=== PATIENT | female | born 1960 | race Caucasian/White ===

== ENCOUNTER 2023-05-04 19:31 | Emergency (ER) | payer OTHER, SELFPAY ==
[2023-05-04 19:42] VITALS: BP 142/92; PULSE 86; RESP 16; TEMP 36.1; O2SAT 97
--- NOTE | 2023-05-04 19:51 | ED.NURSE ---
At end of triage, pt reported neck pain. CMS intact. C-Collar applied. CMS remained intact after application. at bedside with pt
--- NOTE | 2023-05-04 20:17 | ED_ITS ---
HPI - General Adult General Date Seen: 05/04/23 Chief complaint: Laceration/Wound Stated complaint: Head laceration Time Seen by Provider: 05/04/23 20:03 Source: patient Mode of arrival: ambulatory Limitations: no limitations History of Present Illness HPI narrative: Patient is a 63-year-old woman who was cleaning the bathroom, slipped on a wet floor and hit her head on the edge of the toilet. She has a laceration on her forehead. She denies a loss of consciousness, severe headache, vomiting, altered mentation seizure or other complaints. She does not take any anticoagulation. In triage she apparently noted that she had some neck pains with C-collar was applied, but she tells me that her neck really does not hurt anymore. She says she thinks it was little sore just from hitting her head but currently she has no neck pain. She is up-to-date on her tetanus. Related Data Home Medications Medication Instructions Recorded Confirmed No Known Home Medications 05/04/23 05/04/23 Allergies Allergy/AdvReac Type Severity Reaction Status Date / Time No Known Drug Allergies Allergy Verified 05/04/23 19:42 Review of Systems Status of ROS: Reports: 6 or more systems reviewed and unremarkable except as noted in History and below Exam Narrative: Exam Narrative: Vital signs reviewed In general, alert, well-appearing woman. Head: Normocephalic. She has a 1/2 cm laceration oriented just off of horizontal on the right side of her forehead. Bleeding is controlled. There is a of bit of surrounding hematoma. Eyes: Sclera clear. Extraocular movements are full. ENT: No other facial trauma. Dentition intact. Neck: Nontender to palpation. Neurologic: She is alert, conversant, gait stable. Const: Vital Signs, click to edit/add: Vital Signs - 24 hr 05/04/23 19:42 Temperature 96.9 F L Pulse Rate [Left P ulse Oximeter] 86 Respiratory Rate 16 Blood Pressure [Ri ght Upper Arm] 142/92 H Pulse Oximetry 97 Oxygen Delivery Me thod Room Air Documenting provider has reviewed patient's vital signs: yes Course Course Hospital Course: Procedure note: Wound was cleaned, no evidence of foreign body, bleeding remains controlled and I did feel that this was reasonably closed with Dermabond. Patient was eager to avoid stitches. Wound was closed with Dermabond, edges approximated well and there were no immediate complications. Patient declines imaging of her neck, she says she does not have any neck pain at this time and does not feel she needs further evaluation of that. She denies any symptoms suggestive of more severe head injury, is not anticoagulated, at this time I do not think needs intracranial imaging. Wound care discussed, Dermabond care discussed. She should be seen for acute changes such as severe headache, vomiting, altered mentation etcetera or signs of infection. Vital Signs Vital signs: Initial Vital Signs Temperature 96.9 F L 05/04/23 19:42 Temperature Source Temporal Artery Scan 05/04/23 19:42 Pulse Rate 86 05/04/23 19:42 Pulse Rhythm Regular 05/04/23 19:42 Respiratory Rate 16 05/04/23 19:42 Blood Pressure 142/92 H 05/04/23 19:42 Blood Pressure Mean 108 H 05/04/23 19:42 Blood Pressure Position Sitting 05/04/23 19:42 Pulse Oximetry 97 05/04/23 19:42 Oxygen Delivery Method Room Air 05/04/23 19:42 Vital Signs Temperature 96.9 F L 05/04/23 19:42 Pulse Rate 86 05/04/23 19:42 Respiratory Rate 16 05/04/23 19:42 Blood Pressure 142/92 H 05/04/23 19:42 Pulse Oximetry 97 05/04/23 19:42 Oxygen Delivery Method Room Air 05/04/23 19:42 Temperature 96.9 F L 05/04/23 19:42 Pulse Rate 86 05/04/23 19:42 Respiratory Rate 16 05/04/23 19:42 Blood Pressure 142/92 H 05/04/23 19:42 Pulse Oximetry 97 05/04/23 19:42 Oxygen Delivery Method Room Air 05/04/23 19:42 Discharge Plan Discharge Clinical Impression: Forehead laceration Patient Disposition: Home, Self-Care Instructions: Skin Adhesive Care (ED), Head Laceration (ED) Additional Instructions: Routine wound care. Return for changes such as severe headache, vomiting, confusion, or evidence of infection. Prescriptions: No Action No Known Home Medications Follow Up/Referrals: Provider,Not a Local [Primary Care Provider] - Stand Alone Forms: [email or web address] Info Instructions
== END 2023-05-04 20:44 | disposition home or self-care (01) ==
LOC: ED 20:26
PROVIDERS: Emergency Provider Emergency Medicine; PCP Physician Assistant Medical
DX: S01.81XA Laceration without foreign body of other part of head, initial encounter (principal); W18.09XA Striking against other object with subsequent fall, initial encounter; Y93.E5 Activity, floor mopping and cleaning; Y92.012 Bathroom of single-family (private) house as the place of occurrence of the external cause
CPT/HCPCS: 12001; 99282; 99283; 99284

== ENCOUNTER 2024-12-20 08:29 | Day surgery (SDC) | payer MEDICARE, BC, SELFPAY ==
[2024-12-20] VITALS (13 sets, daily range): BP systolic 101–122; BP diastolic 64–90; PULSE 65–79; RESP 14–20; TEMP 36.3–36.8; O2SAT 92–98; BMI 26.2
[2024-12-20] MEDS: CELECOXIB 200 MG CAPSULE PO (08:23)
[2024-12-20] MEDS: ACETAMINOPHEN 500 MG TABLET 1000 MG PO (08:23)
[2024-12-20] MEDS: EPINEPHrine 1 MG in SODIUM CHLORIDE IRRIG SOLUTION 3,000 ML 7000 MG IRRIGATION ×2 (09:10→10:55)
[2024-12-20] MEDS: LACTATED RINGERS 1000 ML 1,000 ML 100 ML IV ×2 (09:30→12:13)
[2024-12-20] MEDS: SODIUM CHLORIDE 0.9 % (FLUSH) 10 ML SYRINGE IVF (09:30)
[2024-12-20] MEDS: MIDAZOLAM HCL 1 MG/ML inj IVP (10:10)
[2024-12-20] MEDS: fentaNYL 100 MCG/2 ML inj IVP (10:10)
--- NOTE | 2024-12-20 10:16 | SUR.PREOP ---
TIME?OUT:?right shoulder, 1005 PT/RN/MDA?VERIFICATION?OF?SURGICAL?SITE,?PROCEDURE,?AND?CONSENT OBTAINED?PRIOR?TO?INVASIVE?PROCEDURE.
--- NOTE | 2024-12-20 10:37 | P.NB_ITS ---
Nerve Block Nerve Block Time Seen by Provider: 10:11 Date Seen: 12/20/24 Type of block requested by surgeon for post-operative analgesia: supraclavicular Side: right Time out performed: Yes Verification of patient name: Yes Verification of date of : Yes Site marking: site marked Name of person performing procedure: Abraham Continuous monitoring Was continuous monitoring of O2 sat, B/P, environmental monitoring technician, recorded every 15 minutes?: Yes Procedure Checklist: sterile prep, needles and gloves Ultrasound guided. Images saved: Yes Medications given in 5ml increments after negative aspiration: Ropivicaine %: 0.5 mL: 20 Needle gauge: 22 Precedex (mcg): 25 Patient tolerated procedure well: Yes Block Charges Block Charge (with Pro Fee): Brachial Plexus Use of Ultrasound Machine for Block: Yes- US Guidance/pain block
--- NOTE | 2024-12-20 10:38 | P.ANES_ITS ---
Anesthesia Charges Start Date/Time Anesthesia Start Date: 12/20/24 Anesthesia Start Time: 10:16 Stop Date/Time Anesthesia Stop Date: 12/20/24 Anesthesia Stop Time: 12:51 Coding CPT Codes CPT Codes: ANESTH SURGERY OF SHOULDER - 57197 ([id number]) P2 - PATIENT W/MILD SYST DISEASE, QK - POLICE DISPATCHER 2-4 CNCRNT ANES PROC, QX - FIREARMS SPECIALIST SVC W/ MD MED DIRECTION
--- NOTE | 2024-12-20 10:38 | W.ANESCHARGE ---
Anesthesia Charges Start Date/Time Anesthesia Start Date: 12/20/24 Anesthesia Start Time: 10:16 Stop Date/Time Anesthesia Stop Date: 12/20/24 Anesthesia Stop Time: 12:51 Coding CPT Codes CPT Codes: ANESTH SURGERY OF SHOULDER - 47562 ([id number]) P2 - PATIENT W/MILD SYST DISEASE, QK - ENVIRONMENTAL HEALTH SANITARIAN 2-4 CNCRNT ANES PROC, QX - BUSINESS SYSTEMS ARCHITECT SVC W/ MD MED DIRECTION
[2024-12-20] MEDS: CEFAZOLIN 2 GM INJ IVP (10:46)
[2024-12-20] MEDS: EPINEPHrine 1 MG in SODIUM CHLORIDE IRRIG SOLUTION 3,000 ML 9003 MG IRRIGATION (10:50)
[2024-12-20] MEDS: BUPIVACAINE 0.25 %/EPI 1:200K 30 ml INJECTION (12:05)
--- NOTE | 2024-12-20 12:12 | P.ORPRC_ITS ---
Procedure Note Date of procedure: 12/20/24 Procedure: PREOPERATIVE DIAGNOSIS: Right shoulder rotator cuff tear, AC joint arthrosis, labral tearing, right hand middle finger stenosing tenosynovitis POSTOPERATIVE DIAGNOSIS: Right shoulder rotator cuff tear, AC joint arthrosis, labral tearing, right hand middle finger stenosing tenosynovitis NAME OF OPERATION: Right shoulder arthroscopic limited glenohumeral joint debridement, subacromial decompression, distal clavicle excision, mini open rotator cuff repair, right hand middle finger A1 esther release SURGEON: Lester Evans MD SHOT CORE DRILL OPERATOR: Taryn Steele PA-C ANESTHESIA: Supraclavicular block plus general endotracheal ESTIMATED BLOOD LOSS: 5 mL COMPLICATIONS: None SPECIMENS: None DRAINS: None PREOPERATIVE ANTIBIOTICS: Ancef 2 grams INDICATIONS: The patient is a 64-year-old with a history of right shoulder pain secondary to the above diagnoses, right hand middle finger catching secondary to trigger finger. Despite appropriate non operative management, they continue to have symptoms. Operative intervention was recommended. The risks, benefits and expected outcomes were discussed in detail. These included but were not limited to: Infection, bleeding, injury to blood vessel or nerve, venous thromboembolism. All questions were answered to their satisfaction. PROCEDURE: A supraclavicular block was placed by Anesthesia. General anesthesia was administered. The patient was placed in the high beach chair position. The right shoulder was prepped and draped in the usual sterile fashion. The glenohumeral joint was infiltrated with 20 mL of normal saline with epinephrine. The posterior portal was established, the arthroscope was introduced. The anterior portal was established, Diagnostic arthroscopy was performed with findings as follows: The biceps and biceps anchor are intact. The labrum shows age-appropriate circumferential degenerative tearing. Articular surfaces on the humeral head and glenoid are normal. There are no loose bodies. There is a full-thickness tear of the supraspinatus. There is longitudinal tearing of the upper border of the subscap. The arthroscope was placed in the subacromial space, the lateral portal was established. The Arthrex [place] was used to dissect the acromion free. The CA ligament was recessed off the anterior acromion, the AC joint was exposed. The acromioplasty was performed with the bur in the posterior portal. The bur was then placed in the lateral portal and the lateral and anterior aspect of the acromion were resected. The undersurface of the distal clavicle was resected through the lateral portal. Finally, the bur was placed in the anterior portal and the remainder of the distal clavicle was resected for a total of 10 mm. An accessory anterolateral portal was placed. The subacromial/subdeltoid bursa was aggressively debrided. There is a full-thickness tear of the supraspinatus. Arthroscopic instruments were removed. The accessory anterolateral portal was extended proximally and distally, subcutaneous dissection was taken with electrocautery to the deltoid. The deltoid was divided in line with its fibers. The static retractor was placed. The subacromial/subdeltoid bursa was debrided with the Smith scissors. The cuff tear was extended both anteriorly and posteriorly. We extended it anteriorly, across the biceps and into the upper subscap, exposing the upper border of the lesser tuberosity. Both the greater and lesser tuberosities were debrided to punctate bleeding bone using the arthroscopic bur and Lempert rongeur. Two Arthrex FiberTak anchors were placed just off the articular surface of the greater tuberosity. Both limbs of the FiberWire and fiber tape were passed using the scorpion. A fiber link was placed in the leading edge of the rotator cuff x2. A corkscrew anchor was placed in the upper lesser tuberosity. All 4 limbs of suture were passed through the subscap with the scorpion. We tied the 2 central FiberWire sutures over the supraspinatus. We then proceeded with a lateral row of SwiveLock anchors x 2 crossing the FiberTape and incorporating the FiberWire and fiber link into each lateral row anchor. The suture on the eyelet was passed through the leading edge of the rotator cuff x2. Finally, the sutures over the subscap were tied. This provides an anatomic, watertight repair of the rotator cuff. There is no tension on the repair with the shoulder at 0? abduction. Attention was then turned to the hand. The hand was sterilely prepped. The skin was infiltrated with 0.25% Marcaine with epinephrine. An incision was made in the distal palmar crease at the base of the middle finger. Subcutaneous dissection was taken with tenotomy scissors to the flexor tendons. The A1 esther was divided longitudinally with the 15 blade and tenotomy scissors. The flexor tendons have some tendinopathy associated with the tenosynovitis. The hand wound was closed with interrupted nylon sutures. The shoulder wound was irrigated with normal saline off the pump. The deltoid was repaired with an 0 Vicryl in an interrupted [id number] fashion. Subcutaneous tissues were closed with a 3-0 Vicryl. Skin was closed with a 3-0 Monocryl in a subcuticular fashion. A dry dressing and sling were applied. Sponge and needle counts were correct x2. The patient tolerated the procedure well. There were no apparent complications. They were carefully transferred to the hospital bed and taken to the postanesthesia care unit in satisfactory condition. PLAN: The patient will be discharged to home. No active range of motion of the shoulder will be allowed for 6 weeks postoperatively. Use of the hand as tolerates. They can work on active range of motion of the elbow, wrist and fingers. They will follow up in the office next week for a wound check and an AP and transscapular Y-view of the shoulder prior to being seen.
--- NOTE | 2024-12-20 12:52 | P.ANES_ITS ---
Anesthesia Charges Start Date/Time Anesthesia Start Date: 12/20/24 Anesthesia Start Time: 10:16 Stop Date/Time Anesthesia Stop Date: 12/20/24 Anesthesia Stop Time: 12:51 Coding CPT Codes CPT Codes: ANESTH SURGERY OF SHOULDER - 26585 ([id number]) P1 - NORMAL HEALTHY PATIENT, QK - PLASTIC TILE LAYER 2-4 CNCRNT ANES PROC, QX - COMPRESSOR REPAIRER SVKtaerina W/ MED DIRECTION
--- NOTE | 2024-12-20 12:52 | W.ANESCHARGE ---
Anesthesia Charges Start Date/Time Anesthesia Start Date: 12/20/24 Anesthesia Start Time: 10:16 Stop Date/Time Anesthesia Stop Date: 12/20/24 Anesthesia Stop Time: 12:51 Coding CPT Codes CPT Codes: ANESTH SURGERY OF SHOULDER - 08892 ([id number]) P1 - NORMAL HEALTHY PATIENT, QK - ACCOUNTS PAYABLE CLERK 2-4 CNCRNT ANES PROC, QX - RED MUD THICKENER OPERATOR SVKaterina W/ MED DIRECTION
== END 2024-12-20 14:40 | disposition home or self-care (01) ==
PROVIDERS: PCP Physician Assistant Medical; Visit Provider Orthopaedic Surgery
PROC: (CPT 23412; principal; 2024-12-20 10:45)
PROC: (CPT 26055; 2024-12-20 10:45)
DX: M75.101 Unspecified rotator cuff tear or rupture of right shoulder, not specified as traumatic (principal); M19.011 Primary osteoarthritis, right shoulder; S43.431A Superior glenoid labrum lesion of right shoulder, initial encounter; M65.841 Other synovitis and tenosynovitis, right hand; M65.331 Trigger finger, right middle finger; G89.18 Other acute postprocedural pain
CPT/HCPCS: 29826; 29822; 29824; 23412; 26055; 01630; 64415; 76942; A9270; C1713; J0171; J0690; J1100; J2250; J2371; J2405; J2704; J2795; J3010; J7120

== ENCOUNTER 2025-03-11 08:45 | Outpatient (RCR) | payer MEDICARE, BC, SELFPAY ==
--- NOTE | 2025-01-04 09:57 | PT.OPE ---
PT [facility] Outpatient Eval PT [facility] Outpatient Eval Start: 01/02/25 15:21 Freq: Status: Active Protocol: Document 01/02/25 15:22 TAZ (Rec: 01/02/25 15:24 TAZ [id number]) E-signed By Vipul Patrick DPT, MS Physical Therapy Outpatient Evaluation Insurance Information Recert Due Date 04/02/25 Insurance Name Medicare B,Blue Cross/[employer] Shield Medical Diagnosis Other postprocedural states; status post right rotator cuff repair Treating Diagnosis R shoulder pain, decreased R shoulder PROM and AROM in all directions, R UE weakness. Subjective Preferred Name Mary Subjective Pt is a R-hand dominant 64 y.o . female who presents to therapy post-op R RCR (full thickness supraspinatus tear) SAD, DCE and GH debridement on 12/20/24. Pt injured her shoulder during a fall in June with high levels of pain and weakness with R UE use and sleep. Minimal pain with Tylenol and ice over the past week. Wearing her sling as directed with pendulums causing elevated soreness but is unsure if she is performing this correctly. Pt lives an active life helping care for her 22 grandkids, gardening and feeding their farm animals . Hopes to return to gardening and performing all daily activities with her R UE without pain. Denies significant PMH. AGGR factors: All activities with R UE, sleeping. ALLEV factors: rest , ice, Tylenol. 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 R shoulder PROM: flex 90 deg, ABD 60 deg, ER 5 deg, IR 45 deg. Good relaxation during passive flex ROM today with minimal elevation in pain levels during or following. Reviewed and corrected pendulums to avoid AROM with good response to elbow, wrist and hand AROM with good albert. Will begin AAROM per protocol as able per MD instructions. She will greatly benefit from continued skilled therapy to address these limitations. Primary Functional Limitations All activities with R UE, sleeping Plan of Care Rehabilitation Potential Excellent Physical Therapy Goals Short-term therapy goals to be completed in 4 weeks: 1.Pt will display improved R shoulder flex and ABD PROM to >165 deg to progress to AROM phase of rehab. 2.Pt will report improved quality of sleep waking <2x per night due to R shoulder pain >50% of nights for >3 consecutive nights. Long-term goals to be completed in 16 weeks: 1.Pt will be independent and compliant with HEP 2.Pt will display >165 deg R shoulder flex and ABD AROM to reach into overhead cabinets and perform all ADLs. 3.Pt will display improved R shoulder flex, ABD, ER and IR strength of 5/5 to lift objects into overhead cabinets , perform yardwork and household activities. 4. Pt will report >75% improvement in quick DASH questionnaire to significantly improve albert to work and daily activities. Coordination/Communication With Referral Source Treatment Plan/Direct Interventions Joint Mobilization,Manual Therapy,Self-Care/Home Management,Therapeutic Exercises Frequency/Duration 2x per week for at least 18-24 visits, decreasing visit frequency as able. Patient Will Be Discharged From Therapy Completion of LTG(s),Skills Plateau,Independent w/HEP, Independently Progressing Evaluation Billing Untimed Code Treatment Minutes 24 Complexity Moderate Certification Information Initial Certification Date 01/02/25 Ending Certification Date 04/02/25 Provider Signature Required Yes Provider Signature Shows Agreement With POC & Medical Necessity Physician NPI Number Write NPI# Here Physician Comment/Change : Physician Signature & Date Requested Please Sign/Date Here
== END 2025-07-03 14:44 | disposition home or self-care (01) ==
PROVIDERS: PCP Physician Assistant Medical; Visit Provider Orthopaedic Surgery
DX: Z48.89 Encounter for other specified surgical aftercare (principal); M25.511 Pain in right shoulder; Z51.89 Encounter for other specified aftercare
CPT/HCPCS: 97110; 97140; 97162